=== PATIENT | male | born 1955 | race Native Hawaiian/Other Pacific Islander ===

== ENCOUNTER 2017-11-22 10:29 | Day surgery (SDC) | payer OTHER | END 2017-11-22 13:25 | disposition home or self-care (01) | LOC: OR 10:29 | PROC: 08RJ3JZ Replacement of Right Lens with Synthetic Substitute, Percutaneous Approach (ICD-10-PCS; principal; 2017-11-22) | DX: H25.811 Combined forms of age-related cataract, right eye (principal) | CPT/HCPCS: 66984; J2250; V2632 ==

== ENCOUNTER 2018-01-24 06:40 | Day surgery (SDC) | payer OTHER ==
[~2018-01-24] VITALS: Ht 30.5 cm; Wt 0.5 kg
== END 2018-01-24 08:37 ==
LOC: OR 06:40
PROC: 08RK3JZ Replacement of Left Lens with Synthetic Substitute, Percutaneous Approach (ICD-10-PCS; principal; 2018-01-24)
DX: H25.812 Combined forms of age-related cataract, left eye (principal)
CPT/HCPCS: 66984; J0171; J2250; V2632